=== PATIENT | female | born 1965 | race Caucasian/White ===

== ENCOUNTER 2019-02-03 19:57 | Emergency (ER) | payer BC ==
[2019-02-03] MEDS ORDERED: Metoclopramide 10 MG/2 ML SDV IVPUSH ONE (20:05)
[2019-02-03] MEDS ORDERED: diphenhydrAMINE 50 MG/ML SDV IVPUSH ONE (20:29)
[2019-02-03] MEDS ORDERED: Ketorolac 30 MG/ML SDV IVPUSH ONE (20:29)
--- NOTE | 2019-02-03 20:45 | EDM.PDOC ---
ED HPI GENERAL MEDICAL PROBLEM - General Chief Complaint: Neurological Problem Stated Complaint: NAUSEA, DIZZY Time Seen by Provider: 02/03/19 20:06 Source of Information: Reports: Patient, RN Notes Reviewed History Limitations: Reports: No Limitations - History of Present Illness INITIAL COMMENTS - FREE TEXT/NARRATIVE: Patient is a 53-year-old female who presents to the ED for evaluation of nausea and vertigo. The patient states she is been experiencing vertigo for the past couple days, however this evening she developed nausea and vomiting. She states she has been taking meclizine for management of her vertigo and this has been helping except for today when she developed the nausea. She states that she took half a dose of meclizine at 6 PM, and another half a dose of little while before developing the nausea and vomiting. She states that she is having increased sinus congestion and/or pressure behind her right eye for a while too. The patient does have a mild headache associated with this. The patient notes a history of breast cancer as well. She states that the dizziness is a world spinning type dizziness. Position does not seem to aggravate the dizziness, it is present pretty much all the time. - Related Data Allergies Allergy/AdvReac Type Severity Reaction Status Date / Time ciprofloxacin [From Cipro] Allergy Hives Verified 02/03/19 20:00 Home Meds: Home Meds Meclizine [Antivert] 25 mg PO ONCALL 02/03/19 [History] Promethazine [Phenergan] 25 mg PO ONCALL PRN 02/03/19 [History] Past Medical History Neurological History: Reports: Vertigo Oncologic (Cancer) History: Reports: Breast - Past Surgical History Other Oncologic Surgeries/Procedures: left sided breast cancer Social & Family History - Tobacco Use Smoking Status *Q: Never Smoker - Recreational Drug Use Recreational Drug Use: No ED ROS GENERAL - Review of Systems Review Of Systems: See Below Constitutional: Denies: Fever, Chills HEENT: Reports: Sinus Problem (increase sinus congestion) Respiratory: Denies: Shortness of Breath Cardiovascular: Reports: No Symptoms Endocrine: Reports: No Symptoms GI/Abdominal: Reports: Nausea, Vomiting. Denies: Constipation, Diarrhea : Reports: No Symptoms Musculoskeletal: Reports: No Symptoms Skin: Reports: No Symptoms Neurological: Reports: Dizziness, Headache. Denies: Syncope Psychiatric: Reports: No Symptoms Hematologic/Lymphatic: Reports: No Symptoms Immunologic: Reports: No Symptoms ED EXAM, GENERAL - Physical Exam Exam: See Below Exam Limited By: No Limitations General Appearance: Alert, WD/WN, No Apparent Distress, Other (pt has emesis bag at bedside, actively vomiting at time of examination) Eye Exam: Right Eye: Nystagmus (nystagmus noted on rightward gaze, this aggravated the dizziness and nausea.), Bilateral Eye: EOMI, Normal Inspection, PERRL Ears: Normal External Exam, Normal Canal, Hearing Grossly Normal, Normal TMs ( serous fluid noted behind bilateral TMs) Nose: Normal Inspection Throat/Mouth: Normal Inspection, Normal Lips, Normal Teeth, Normal Gums, Normal Oropharynx, Normal Voice, No Airway Compromise Head: Atraumatic, Normocephalic Neck: Normal Inspection Respiratory/Chest: No Respiratory Distress, Lungs Clear, Normal Breath Sounds, No Accessory Muscle Use, Chest Non-Tender Cardiovascular: Normal Peripheral Pulses, Regular Rate, Rhythm, No Murmur GI/Abdominal: Normal Bowel Sounds, Soft, Non-Tender, No Distention, No Mass Extremities: Normal Inspection, Normal Capillary Refill Neurological: Alert, Oriented, Normal Cognition, Normal Gait, No Motor/Sensory Deficits Psychiatric: Normal Affect, Normal Mood Skin Exam: Warm, Dry, Intact, No Rash, Pallor (generalized) Course - Vital Signs Last Recorded V/S: Last Vital Signs Temp 97.1 F 02/03/19 20:00 Pulse 85 02/03/19 20:00 Resp 18 02/03/19 20:00 BP 158/86 H 02/03/19 20:00 Pulse Ox 96 02/03/19 20:00 - Orders/Labs/Meds Orders: Active Orders 24 hr Category Date Time Status Head wo Cont [CT] Stat Exams 02/03/19 21:42 Ordered Meds: Medications Discontinued Medications Generic Name Dose Route Start Last Admin Trade Name Freq PRN Reason Stop Dose Admin Diphenhydramine HCl 25 mg 02/03/19 20:29 02/03/19 20:49 Benadryl IVPUSH 02/03/19 20:30 25 mg ONETIME ONE Administration Ketorolac Tromethamine 30 mg 02/03/19 20:29 02/03/19 20:49 Toradol IVPUSH 02/03/19 20:30 30 mg ONETIME ONE Administration Metoclopramide HCl 10 mg 02/03/19 20:05 02/03/19 20:10 Reglan IVPUSH 02/03/19 20:06 10 mg ONETIME ONE Administration - Re-Assessments/Exams Free Text/Narrative Re-Assessment/Exam: 02/03/19 20:46 Patient presents to the ED for the evaluation of dizziness and nausea. I do believe that she is suffering from a bad case of vertigo. I did order for 10mg Reglan, 25mg IV benadryl, and 30 mg IV toradol for initial management. 02/03/19 21:43 Pt has not received much relief from being dizzy from the medications given, I did discuss the patient's presentation with Dr. Hazel, and he suggested that due to the patient's headache, to obtain a head CT to r/o a bleed or other abnormality. The patient is okay with this. 02/03/19 23:[address] is done and does not demonstrate any sort of bleed or other intracranial abnormality. 02/03/19 23:33 Did do the Tignall-Hallpike maneuver, and the patient did have some fast rightward, and upward counterclockwise nystagmus. Dr. Hazel suggested that this would mean that there is a problem with one of the Left canaliths. Of further note she is not complaining of any loss of hearing, or tinnitus, or a roaring sensation in her ears. Departure - Departure Time of Disposition: 23:36 Disposition: Home, Self-Care 01 Condition: Fair Clinical Impression: BPPV (benign paroxysmal positional vertigo) Qualifiers: Laterality: left Qualified Code(s): H81.12 - Benign paroxysmal vertigo, left ear - Discharge Information *PRESCRIPTION DRUG MONITORING PROGRAM REVIEWED*: No *COPY OF PRESCRIPTION DRUG MONITORING REPORT IN PATIENT AIDE: No Instructions: Vertigo, [id number] Referrals: PCP,Unknown [Ordering Only Provider] - Forms: ED Department Discharge, ED Return to Work/School Form Additional Instructions: You were evaluated in the ER today regarding your vertigo. A head CT was done to rule out any sort of bleed, due to your headache. This was all within normal limits. It is likely that you're suffering from benign paroxysmal positional vertigo. Treatment of this is repositioning of the stones that relate to balance within your inner ears. This is done via common outpatient procedure, Yusuf maneuvers , and can be performed by physical therapy, or by herself at home. You have been given an educational handout on how to perform the Yusuf maneuvers at home. Recommend that you take 25 mg meclizine every 6-8 hours or so, until your symptoms relent. It is during this time that you should not drive while experiencing symptoms of vertigo. You have been given an antinausea medication , Zofran as well, this should help with some of the nausea associated with this feeling. An outpatient order for physical therapy referral was written on your behalf, if you have not heard from physical therapy in a day or or 2, recommend that you call them to schedule an appointment. Please return to the ED if your symptoms should change or worsen. - My Orders Last 24 Hours: My Active Orders 02/03/19 21:42 Head wo Cont [CT] Stat - Assessment/Plan Last 24 Hours: My Active Orders 02/03/19 21:42 Head wo Cont [CT] Stat
[2019-02-03] MEDS ORDERED: Ondansetron 4 MG Tab.DIS PO ONE (23:52)
--- NOTE | 2019-02-05 17:24 | CT ---
Head CT Technique: Multiple axial sections through the brain were obtained. Intravenous contrast was not utilized. Comparison: No prior intracranial imaging is available. Findings: Ventricles along with basal cisterns and sulci over the convexities are within normal limits for the patient's age. No abnormal parenchymal densities are seen. No evidence of intracranial hemorrhage. No midline shift or mass effect is seen. Bone window settings were reviewed which show the mastoid sinuses to appear clear. Visualized paranasal sinuses are clear. No acute calvarial abnormality is seen. Impression: 1. Nothing acute is appreciated on noncontrast head CT exam. Diagnostic code #1 I agree with preliminary report from [facility], finalized on 02/03/19, 11:23 PM Central Time
== END 2019-02-04 00:04 | disposition home or self-care (01) ==
LOC: JD.ED 19:57
DX: H81.12 Benign paroxysmal vertigo, left ear (principal); Z88.1 Allergy status to other antibiotic agents; Z85.3 Personal history of malignant neoplasm of breast
CPT/HCPCS: 70450; 96374; 96375; 99284; J1200; J1885; J2765